=== PATIENT | male | born 1965 | race Caucasian/White ===

== ENCOUNTER 2019-11-08 13:26 | Emergency (ER) | payer MEDICAID ==
[~2019-11-08] VITALS: Ht 185.4 cm; Wt 130.7 kg
[~2019-11-08 13:26] MED LIST: ALBU6.7H9 INH; NO HOME MEDS
[2019-11-08 13:28] VITALS: BP 145/81
[2019-11-08] MEDS ORDERED: LEVO500T2 PO (14:41)
[2019-11-08] MEDS ORDERED: ALBU6.7H9 INH (14:41)
[2019-11-08] MEDS ORDERED: METH4TAB81 PO (14:41)
== END 2019-11-08 15:10 | disposition home or self-care (01) ==
LOC: ER 13:27
DX: J20.9 Acute bronchitis, unspecified (principal); Z88.1 Allergy status to other antibiotic agents; Z79.2 Long term (current) use of antibiotics
CPT/HCPCS: 99283

== ENCOUNTER 2023-08-22 12:41 | Inpatient (IN) | payer MEDICAID ==
[2023-08-22] VITALS (11 sets, daily range): BP systolic 95–168; BP diastolic 56–82; PULSE 64–89; RESP 14–18; TEMP 97.5–98.6; O2SAT 93–98
[~2023-08-22] VITALS: Ht 185.4 cm; Wt 133.8 kg
[~2023-08-22 12:41] MED LIST changes: +ALBU6.7H14 INH; -ALBU6.7H9 INH; +METH4TAB81 PO
[2023-08-22] MEDS ORDERED: insulin Lispro (HumaLOG) vial - multi-dose SQ SCH (12:55)
[2023-08-22] MEDS ORDERED: LORazepam 0.5 MG tablet PO PRN (12:55)
[2023-08-22] MEDS ORDERED: dextrose 50%-water 50ml dispensing syringe IV PRN ×2 (12:55)
[2023-08-22] MEDS ORDERED: nitroGLYCERIN 0.4mg SUBLingual tab SL PRN ×2 (12:55→15:25)
[2023-08-22] MEDS ORDERED: MESSAGE TO PHARMACY PO ONE (12:55)
[2023-08-22] MEDS ORDERED: diphenhydrAMINE 25mg capsule PO PRN (12:55)
[2023-08-22] MEDS ORDERED: DEXTROSE 15 GM of carb/4 tabs (each vial/BOTTLE has 4 tablets) PO PRN ×2 (12:55)
[2023-08-22] MEDS ORDERED: glucagon, human recombinant 1mg kit SUBCUT PRN (12:55)
[2023-08-22] MEDS ORDERED: METO-395 PO (12:57)
[2023-08-22] MEDS ORDERED: PANT40TA54 PO (12:57)
[2023-08-22] MEDS ORDERED: LISI1TAB53 PO (12:57)
[2023-08-22] MEDS ORDERED: NITR1PAT68 TOP (13:03)
[2023-08-22] MEDS: normal saline 1,000 ML IV SCH ×2 (13:29→21:25)
[2023-08-22 13:39] LABS: BASOPHILS # (AUTO) 0.1 X10'3 (0-0.2); BASOPHILS % (AUTO) 0.9 % (0-1); EOSINOPHILS # (AUTO) 0.1 X10'3 (0-0.9); EOSINOPHILS % (AUTO) 1.5 % (0-6); HEMATOCRIT 43.5 % (42.0-52.0); LYMPHOCYTES % (AUTO) 25.1 % (21-51); MEAN CORPUSCULAR HEMOGLOBIN 30.3 PG (27.0-31.0); MEAN CORPUSCULAR HGB CONC 34.6 g/dL (33.0-36.5); MEAN CORPUSCULAR VOLUME 87.5 FL (78-98); MEAN PLATELET VOLUME 7.4 FL (7.4-10.4); MONOCYTES # (AUTO) 0.7 X10'3 (0-0.9); MONOCYTES % (AUTO) 9.2 % (2-12); NEUTROPHILS # (AUTO) 5.1 X10'3 (1.8-7.7); NEUTROPHILS % (AUTO) 63.3 % (42-75); PLATELET COUNT 329 X10'3 (140-440); RED BLOOD COUNT 4.97 X10'6 (4.70-6.10); RED CELL DISTRIBUTION WIDTH 13.3 % (11.5-14.5); WHITE BLOOD COUNT 8.1 X10'3 (4.5-11.0)
[2023-08-22 13:43] LABS: APTT 24 SECONDS (22-32); PROTHROMBIN TIME 10.5 SECONDS (9.0-12.0)
[2023-08-22] MEDS ORDERED: iohexol 350 MG/ML 50ML vial IV ONE ×2 (13:43→14:32)
[2023-08-22] MEDS ORDERED: LIDOcaine 1% (10mg/ml)w/preservative inj. 20ml MDV ONE (13:43)
[2023-08-22] MEDS ORDERED: fentaNYL/PF 50MCG/1 ML 2ML syringe ONE ×2 (13:43→14:25)
[2023-08-22] MEDS ORDERED: iohexol 350MG/ML 100ml bottle IV ONE (13:43)
[2023-08-22] MEDS ORDERED: midazolam 1 mg/ML 2ml injection ONE ×2 (13:43→14:17)
[2023-08-22 13:55] LABS: ALBUMIN 3.9 G/DL (3.4-5.0); ANION GAP 6 (8-16); BLOOD UREA NITROGEN 8 MG/DL (7-18); BUN/CREATININE RATIO 9.2 (10.0-20.0); CALCIUM 9.3 MG/DL (8.5-10.1); CHLORIDE 99 MMOL/L (99-107); CREATININE 0.87 MG/DL (0.60-1.10); GLUCOSE 118 MG/DL (70-104); POTASSIUM 3.6 MMOL/L (3.5-5.1); SODIUM 136 MMOL/L (135-145); TOTAL CARBON DIOXIDE 30.7 MMOL/L (24-32); eCRCL 107 ML/MIN; eGFR > 90 ML/MIN
[2023-08-22] MEDS ORDERED: normal saline 1000ml 1,000 ML IV SCH (15:25)
[2023-08-22] MEDS ORDERED: HYDROcodone/acetaminophen 5mg/325mg tablet PO PRN (15:25)
[2023-08-22] MEDS ORDERED: proCHLORperazine 10 MG/2 ml inj IV PRN (15:25)
[2023-08-22] MEDS ORDERED: HYDROcodone/acetaminophen 10/325mg tab PO PRN (15:25)
[2023-08-22] MEDS ORDERED: ondansetron/PF 4mg/2ml inj IV PRN (15:25)
[2023-08-22] MEDS: insulin glargine (Lantus) pen - multi-dose SQ SCH (21:00)
[2023-08-23 02:00] VITALS: BP 142/54; PULSE 65; RESP 18; TEMP 98; O2SAT 97
[2023-08-23] MEDS ORDERED: Insulin Reg/NS 100units/100mL 100 ML IV SCH (05:30)
[2023-08-23 06:00] VITALS: BP 136/67; PULSE 83; RESP 18; TEMP 98.6; O2SAT 93
[2023-08-23 09:19] LABS: BASOPHILS % (AUTO) 0.4 % (0-1); EOSINOPHILS # (AUTO) 0.1 X10'3 (0-0.9); EOSINOPHILS % (AUTO) 0.8 % (0-6); HEMATOCRIT 43.1 % (42.0-52.0); HEMOGLOBIN 14.5 g/dl (14.0-17.9); LYMPHOCYTES # (AUTO) 1.6 X10'3 (1.1-4.8); LYMPHOCYTES % (AUTO) 17.1 % (21-51); MEAN CORPUSCULAR HEMOGLOBIN 29.5 PG (27.0-31.0); MEAN CORPUSCULAR HGB CONC 33.7 g/dL (33.0-36.5); MEAN CORPUSCULAR VOLUME 87.6 FL (78-98); MEAN PLATELET VOLUME 7.3 FL (7.4-10.4); MONOCYTES # (AUTO) 0.7 X10'3 (0-0.9); MONOCYTES % (AUTO) 7.9 % (2-12); NEUTROPHILS # (AUTO) 6.9 X10'3 (1.8-7.7); NEUTROPHILS % (AUTO) 73.8 % (42-75); PLATELET COUNT 297 X10'3 (140-440); RED BLOOD COUNT 4.92 X10'6 (4.70-6.10); RED CELL DISTRIBUTION WIDTH 13.3 % (11.5-14.5); WHITE BLOOD COUNT 9.4 X10'3 (4.5-11.0)
[2023-08-23 09:32] LABS: PROTHROMBIN TIME 10.8 SECONDS (9.0-12.0)
[2023-08-23 09:38] LABS: ALANINE AMINOTRANSFERASE 46 U/L (12-78); ALBUMIN 3.5 G/DL (3.4-5.0); ALBUMIN/GLOBULIN RATIO 0.8 (1.1-1.5); ALKALINE PHOSPHATASE 61 IU/L (46-116); ANION GAP 7 (8-16); ASPARTATE AMINO TRANSFERASE 28 U/L (10-37); BILIRUBIN,TOTAL 0.8 MG/DL (0.1-1.0); BLOOD UREA NITROGEN 10 MG/DL (7-18); BUN/CREATININE RATIO 12.2 (10.0-20.0); CHLORIDE 100 MMOL/L (99-107); CREATININE 0.82 MG/DL (0.60-1.10); GLUCOSE 136 MG/DL (70-104); POTASSIUM 3.8 MMOL/L (3.5-5.1); SODIUM 135 MMOL/L (135-145); TOTAL CARBON DIOXIDE 28.2 MMOL/L (24-32); TOTAL PROTEIN 7.7 G/DL (6.4-8.2); eCRCL 114 ML/MIN; eGFR > 90 ML/MIN
[2023-08-23 09:44] LABS: HEMOGLOBIN A1C 6.1 % (4.5-6.2)
[2023-08-23 11:00] VITALS: BP 163/77; PULSE 88; RESP 20; TEMP 98.8; O2SAT 94
[2023-08-23] MEDS ORDERED: metoprolol succinate 25mg (24-HOUR) SR. Tablet PO SCH (11:36)
[2023-08-23] MEDS ORDERED: HYDROchlorothiazide 25mg tablet PO SCH (11:38)
[2023-08-23] MEDS ORDERED: lisinopril 20mg tablet PO SCH (11:38)
[2023-08-23 15:00] VITALS: BP 177/79; PULSE 84; RESP 15; TEMP 98; O2SAT 96
[2023-08-23] MEDS: OXAZEpam 15mg capsule PO PRN ×2 (15:49→21:45)
[2023-08-23 17:19] LABS: ABG BASE EXCESS 2.8 mmol/L (-2.0-2.0); ABG HCO3 27.2 mmol/L (22.0-26.0); ABG OXYGEN SATURATION 95.9 % (94-97); ABG PCO2 (T) 41.3 mmHg (35.0-48.0); ABG PH (T) 7.438 (7.340-7.440); ABG PO2 (T) 78.2 mmHg (75.0-100.0); ALLEN'S TEST POSITIVE; FCOHb 0.8 % (0.0-3.9); FHHb 4.1 % (0.0-5.0); FMetHb 0.3 % (0.0-1.5); FO2Hb 94.8 % (94-97); PATIENT TEMPERATURE 37.1; TOTAL HEMOGLOBIN 15.7 G/dl (14.0-17.9)
[2023-08-23 18:00] VITALS: BP 129/60; PULSE 85; RESP 12; TEMP 97.7; O2SAT 97
[2023-08-23] MEDS ORDERED: Melatonin 3mg tablet PO ONE (20:50)
[2023-08-23] MEDS: insulin glargine (Lantus) pen - multi-dose SQ SCH (21:00)
[2023-08-23 22:00] VITALS: BP 120/58; PULSE 73; RESP 14; TEMP 98.2; O2SAT 95
[2023-08-23] MEDS ORDERED: dextrose 50%-water 50ml dispensing syringe IV PRN (23:35)
[2023-08-23] MEDS ORDERED: MESSAGE TO NURSING PO ONE (23:35)
[2023-08-24] VITALS (21 sets, daily range): BP systolic 86–159; BP diastolic 46–79; PULSE 64–88; RESP 12–28; TEMP 97.5–98.4; O2SAT 90–100
[2023-08-24] MEDS ORDERED: mupirocin 2% nasal ointment 1gm UD NS SCH (05:30)
[2023-08-24] MEDS ORDERED: insulin glargine (Lantus) pen - multi-dose SQ PRN ×2 (05:30→15:20)
[2023-08-24] MEDS ORDERED: cefazolin 2gm/D5W 100mL 100 ML IV ONE (05:30)
[2023-08-24] MEDS ORDERED: LORazepam 2 mg/ml vial IV ONE (06:30)
[2023-08-24] MEDS ORDERED: famotidine 20mg tablet PO ONE (06:30)
[2023-08-24] MEDS ORDERED: ceFAZolin 1000mg inj ONE (06:52)
[2023-08-24] MEDS ORDERED: epiNEPHrine 1 mg/ml inj ONE (06:52)
[2023-08-24] MEDS ORDERED: BUPIVAcaine 0.5% inj/PF 30 ML ONE (06:53)
[2023-08-24] MEDS ORDERED: BUPIVACAINE liposomal/PF 13.3 MG/ML vial IM ONE ×2 (06:53→09:00)
[2023-08-24] MEDS ORDERED: epiNEPHrine 1 mg/ml 30ml MDV ONE (07:53)
[2023-08-24] MEDS ORDERED: pantoprazole 40mg Tablet.DR PO SCH (08:00)
[2023-08-24] MEDS ORDERED: MIDAZolam 1mg/ml 10ml vial ONE (08:04)
[2023-08-24] MEDS ORDERED: fentaNYL /PF 50mcg/ml 5ml ampule ONE ×3 (08:04)
[2023-08-24] MEDS ORDERED: propofol inj 20 ML IV ONE ×2 (08:07→08:08)
[2023-08-24] MEDS ORDERED: LIDOcaine 2% (20mg/ml) 5ml vial ONE (08:07)
[2023-08-24] MEDS ORDERED: NORepinephrine 8 MG in NS 250 ML BAG (32 mcg/ml) IV ONE (08:20)
[2023-08-24] MEDS ORDERED: ondansetron/PF 4mg/2ml inj ONE (08:20)
[2023-08-24] MEDS ORDERED: nitroGLYCERIN in D5W 50mg/250ml (Tridil) infusion IV ONE (08:20)
[2023-08-24] MEDS ORDERED: aminocaproic acid 250 MG/1 ML inj. ONE (08:20)
[2023-08-24] MEDS ORDERED: sevoflurane 250ml liquid IH ONE (08:20)
[2023-08-24] MEDS ORDERED: ceFAZolin 1000mg inj IR ONE (09:00)
[2023-08-24] MEDS ORDERED: papaverine 30 mg/ml 2ml inj. IM ONE (09:00)
[2023-08-24] MEDS ORDERED: heparin 10,000 units/1 ML INJ IR ONE (09:00)
[2023-08-24] MEDS ORDERED: epiNEPHrine 1 mg/ml inj SQ ONE (09:00)
[2023-08-24] MEDS ORDERED: BUPIVAcaine 0.5% inj/PF 30 ml vial IJ ONE (09:00)
[2023-08-24 09:06] LABS: ABG BASE EXCESS 1.6 mmol/L (-2.0-2.0); ABG HCO3 26.1 mmol/L (22.0-26.0); ABG OXYGEN SATURATION 97.5 % (94-97); ABG PCO2 40.6 mmHg (35.0-48.0); ABG PH 7.426 (7.340-7.440); ABG PO2 106.1 mmHg (75.0-100.0); CL (ABG) 98 mmol/L (99-107); FCOHb 0.3 % (0.0-3.9); FHHb 2.5 % (0.0-5.0); FMetHb 0.3 % (0.0-1.5); FO2Hb 96.9 % (94-97); GLUCOSE (ABG) 144 mg/dl (70-104); IONIZED CA (ABG) 1.14 mmol/L (1.10-1.30); TOTAL HEMOGLOBIN 15.1 G/dl (14.0-17.9)
[2023-08-24] MEDS ORDERED: dexamethasone sod phosphate 4mg/ml inj. ONE (09:08)
[2023-08-24] MEDS ORDERED: rocuronium 10mg/ml inj IV ONE ×5 (09:46→14:58)
[2023-08-24] MEDS ORDERED: ROPIVAcaine 0.2%/PF PUMP/bolus 545 ML ERECSPINPL SCH (10:25)
[2023-08-24] MEDS ORDERED: ROPIVAcaine 0.2% (10 MG/5 ML) BOLUS INJECTION ERECSPINPL PRN (10:25)
[2023-08-24] MEDS ORDERED: ipratropium/albuterol 3ml nebule IH SCH (11:00)
[2023-08-24] MEDS ORDERED: albumin (Human) 5% 250ml 250 ML IV ONE (11:12)
[2023-08-24] MEDS ORDERED: methylPREDNISolone sod. succ. 500mg inj ONE (12:00)
[2023-08-24] MEDS ORDERED: heparin 10,000 units/1 ML INJ ONE (12:00)
[2023-08-24] MEDS ORDERED: ROPIVAcaine 0.5% (5mg/ml) 30ml vial ONE (13:35)
[2023-08-24] MEDS ORDERED: ondansetron/PF 4mg/2ml inj IV PRN (15:20)
[2023-08-24] MEDS ORDERED: metoclopramide 5 mg/ml inj IV PRN (15:20)
[2023-08-24] MEDS: Insulin Reg/NS 100units/100mL 100 ML IV SCH (15:20)
[2023-08-24] MEDS ORDERED: dextrose 50%-water 50ml dispensing syringe IV PRN (15:20)
[2023-08-24] MEDS ORDERED: potassium Cl 40MEQ/1/2NS 520ml 520 ML IV PRN (15:20)
[2023-08-24] MEDS ORDERED: potassium Cl 40MEQ/270ML bag 250 ML IV PRN (15:20)
[2023-08-24] MEDS ORDERED: magnesium 4gm in 100ml NS 100 ML IV PRN (15:20)
[2023-08-24] MEDS ORDERED: niCARDipine-NS 40mg/200ml IVPB 200 ML IV PRN (15:20)
[2023-08-24] MEDS ORDERED: potassium CL 10mEq/100ml bag 100 ML IV PRN (15:20)
[2023-08-24] MEDS ORDERED: sodium phosphate inj. 15 MMOL in dextrose 5%-water 250 ML IV PRN (15:20)
[2023-08-24] MEDS ORDERED: Neutra Phos packet PO PRN (15:20)
[2023-08-24] MEDS ORDERED: sodium phosphate inj. 30 MMOL in dextrose 5%-water 250 ML IV PRN (15:20)
[2023-08-24] MEDS ORDERED: potassium Cl 20 mEq SR tablet PO PRN (15:20)
[2023-08-24] MEDS ORDERED: mineral oil 133ml enema RC PRN (15:20)
[2023-08-24] MEDS ORDERED: nitroGLYCERIN-Tridil 50MG/D5W 250 ML IV PRN (15:20)
[2023-08-24] MEDS ORDERED: bisacodyl 10mg suppository rectal RC PRN (15:20)
[2023-08-24] MEDS ORDERED: magnesium hydroxide 30ml (MOM) UD suspension PO PRN (15:20)
[2023-08-24] MEDS ORDERED: normal saline 250ml IV soln 250 ML IV PRN (15:20)
[2023-08-24] MEDS ORDERED: DOPamine 400mg/D5W 250ml 250 ML IV PRN (15:20)
[2023-08-24] MEDS ORDERED: acetaminophen 325mg tablet PO PRN ×2 (15:20)
[2023-08-24 15:44] LABS: ABG BASE EXCESS -4.1 mmol/L (-2.0-2.0); ABG HCO3 20.7 mmol/L (22.0-26.0); ABG PCO2 (T) 37.8 mmHg (35.0-48.0); ABG PH (T) 7.358 (7.340-7.440); ABG PO2 (T) 79.9 mmHg (75.0-100.0); FCOHb 0.4 % (0.0-3.9); FMetHb 0.3 % (0.0-1.5); FO2Hb 94.3 % (94-97); PATIENT TEMPERATURE 37.5; PEEP 10 cm H2O; RESPIRATORY RATE 12 b/min; TIDAL VOLUME 700 mL; TOTAL HEMOGLOBIN 13.1 G/dl (14.0-17.9)
[2023-08-24] MEDS ORDERED: cefazolin/dext.iso 2gm/50ml 50 ML IV SCH (16:00)
[2023-08-24] MEDS: sodium chloride 0.45% 1,000 ML IV SCH (16:05)
[2023-08-24 16:08] LABS: BASOPHILS % (AUTO) 0.3 % (0-1); EOSINOPHILS % (AUTO) 0 % (0-6); HEMATOCRIT 37.7 % (42.0-52.0); HEMOGLOBIN 12.6 g/dl (14.0-17.9); LYMPHOCYTES % (AUTO) 5.7 % (21-51); MEAN CORPUSCULAR HEMOGLOBIN 29.5 PG (27.0-31.0); MEAN CORPUSCULAR HGB CONC 33.5 g/dL (33.0-36.5); MEAN CORPUSCULAR VOLUME 88.1 FL (78-98); MEAN PLATELET VOLUME 7.3 FL (7.4-10.4); MONOCYTES # (AUTO) 0.8 X10'3 (0-0.9); MONOCYTES % (AUTO) 4.4 % (2-12); NEUTROPHILS # (AUTO) 15.6 X10'3 (1.8-7.7); NEUTROPHILS % (AUTO) 89.6 % (42-75); PLATELET COUNT 291 X10'3 (140-440); RED BLOOD COUNT 4.28 X10'6 (4.70-6.10); RED CELL DISTRIBUTION WIDTH 13.3 % (11.5-14.5); WHITE BLOOD COUNT 17.5 X10'3 (4.5-11.0)
[2023-08-24] MEDS: ceFAZolin inj. 2,000 MG in dextrose 5%-water 100 ML IV SCH (16:15)
[2023-08-24] MEDS: morphine 4 MG/ML inj SYRINge IV PRN (16:17)
[2023-08-24 16:24] LABS: ALANINE AMINOTRANSFERASE 40 U/L (12-78); ALBUMIN 2.8 G/DL (3.4-5.0); ALBUMIN/GLOBULIN RATIO 0.9 (1.1-1.5); ALKALINE PHOSPHATASE 47 IU/L (46-116); ANION GAP 11 (8-16); ASPARTATE AMINO TRANSFERASE 65 U/L (10-37); BILIRUBIN,TOTAL 1.3 MG/DL (0.1-1.0); BLOOD UREA NITROGEN 9 MG/DL (7-18); BUN/CREATININE RATIO 12.2 (10.0-20.0); CALCIUM 7.6 MG/DL (8.5-10.1); CHLORIDE 103 MMOL/L (99-107); CREATININE 0.74 MG/DL (0.60-1.10); GLUCOSE 174 MG/DL (70-104); MAGNESIUM 1.6 MG/DL (1.5-2.4); PHOSPHORUS 3.6 MG/DL (2.3-4.5); POTASSIUM 3.7 MMOL/L (3.5-5.1); SODIUM 136 MMOL/L (135-145); TOTAL CARBON DIOXIDE 22.2 MMOL/L (24-32); TOTAL PROTEIN 5.9 G/DL (6.4-8.2); eCRCL 126 ML/MIN; eGFR > 90 ML/MIN
[2023-08-24] MEDS ORDERED: sodium bicarbonate (8.4%) 1 mEq/ml syringe IV ONE (16:30)
[2023-08-24] MEDS ORDERED: niCARDipine-NS 40mg/200ml IVPB 200 ML IV SCH (16:30)
[2023-08-24] MEDS ORDERED: propofol 1000mg/100ml bottle 100 ML IV PRN (16:30)
[2023-08-24 16:32] LABS: FIBRINOGEN 282 MG/DL (177-424); INR 1.1 INR; PROTHROMBIN TIME 11.4 SECONDS (9.0-12.0)
[2023-08-24] MEDS ORDERED: sodium bicarbonate (8.4%) 1 mEq/ml syringe ONE (16:33)
[2023-08-24] MEDS ORDERED: furosemide 40mg/4ml inj IV ONE (16:35)
[2023-08-24 16:45] LABS: APTT 85 SECONDS (22-32)
[2023-08-24] MEDS ORDERED: acetaminophen 1,000mg/100ml IV 100 ML IV ONE (18:00)
[2023-08-24] MEDS: dexmedetomidin/NS 400mcg/100ml 100 ML IV SCH (18:02)
[2023-08-24] MEDS: morphine 2 MG/ML inj. syringe IV PRN ×2 (18:05→20:18)
[2023-08-24] MEDS: potassium Cl 20mEq/100mL bag 100 ML IV PRN ×3 (18:20→20:18)
[2023-08-24] MEDS: albumin (Human) 5% 250ml 250 ML IV PRN ×3 (18:32→20:34)
[2023-08-24] MEDS: magnesium 2GM in 50ml NS 50 ML IV PRN ×2 (18:40→22:20)
[2023-08-24 19:23] LABS: ABG HCO3 24.3 mmol/L (22.0-26.0); ABG OXYGEN SATURATION 95.8 % (94-97); ABG PCO2 (T) 39.5 mmHg (35.0-48.0); ABG PO2 (T) 82.6 mmHg (75.0-100.0); FCOHb 0.3 % (0.0-3.9); FHHb 4.2 % (0.0-5.0); FMetHb 0.3 % (0.0-1.5); FO2Hb 95.2 % (94-97); MODE simv 10/10; PATIENT TEMPERATURE 37.7; PEEP 10 cm H2O; RESPIRATORY RATE 16 b/min; TIDAL VOLUME 500 mL; TOTAL HEMOGLOBIN 12.4 G/dl (14.0-17.9)
[2023-08-24] MEDS: sennosides/docusate sodium tablet PO SCH (20:00)
[2023-08-24] MEDS: gabapentin 300mg capsule PO SCH (20:18)
[2023-08-24] MEDS: mupirocin 2% nasal ointment 1gm UD NS SCH (20:18)
[2023-08-24] MEDS ORDERED: atorvastatin 10mg tablet PO SCH (21:00)
[2023-08-24] MEDS: HYDROcodone/acetaminophen 10/325mg tab PO PRN (22:20)
[2023-08-24 23:12] LABS: BASOPHILS % (AUTO) 0.1 % (0-1); EOSINOPHILS % (AUTO) 0 % (0-6); HEMATOCRIT 34.5 % (42.0-52.0); HEMOGLOBIN 11.6 g/dl (14.0-17.9); LYMPHOCYTES # (AUTO) 1.2 X10'3 (1.1-4.8); LYMPHOCYTES % (AUTO) 7.2 % (21-51); MEAN CORPUSCULAR HEMOGLOBIN 29.9 PG (27.0-31.0); MEAN CORPUSCULAR HGB CONC 33.7 g/dL (33.0-36.5); MEAN CORPUSCULAR VOLUME 88.5 FL (78-98); MEAN PLATELET VOLUME 7.6 FL (7.4-10.4); MONOCYTES # (AUTO) 1.9 X10'3 (0-0.9); NEUTROPHILS # (AUTO) 13.9 X10'3 (1.8-7.7); NEUTROPHILS % (AUTO) 81.7 % (42-75); PLATELET COUNT 286 X10'3 (140-440); RED CELL DISTRIBUTION WIDTH 13.2 % (11.5-14.5)
[2023-08-24 23:17] LABS: ALBUMIN 3.4 G/DL (3.4-5.0); ANION GAP 10 (8-16); BLOOD UREA NITROGEN 12 MG/DL (7-18); BUN/CREATININE RATIO 13.3 (10.0-20.0); CALCIUM 7.6 MG/DL (8.5-10.1); CHLORIDE 102 MMOL/L (99-107); GLUCOSE 167 MG/DL (70-104); MAGNESIUM 2.5 MG/DL (1.5-2.4); PHOSPHORUS 3.4 MG/DL (2.3-4.5); POTASSIUM 4.4 MMOL/L (3.5-5.1); SODIUM 136 MMOL/L (135-145); TOTAL CARBON DIOXIDE 24.2 MMOL/L (24-32); eCRCL 104 ML/MIN; eGFR 87 ML/MIN
[2023-08-25] VITALS (44 sets, daily range): BP systolic 95–132; BP diastolic 47–66; PULSE 77–114; RESP 16–33; O2SAT 85–98
[2023-08-25] MEDS: ceFAZolin inj. 2,000 MG in dextrose 5%-water 100 ML IV SCH ×3 (00:14→16:17)
[2023-08-25] MEDS: potassium Cl 20mEq/100mL bag 100 ML IV PRN ×4 (00:14→06:02)
[2023-08-25] MEDS: morphine 4 MG/ML inj SYRINge IV PRN ×6 (00:43→22:35)
[2023-08-25] MEDS: dexmedetomidin/NS 400mcg/100ml 100 ML IV SCH ×5 (02:01→20:15)
[2023-08-25] MEDS: ipratropium/albuterol 3ml nebule NEB SCH ×2 (03:29→09:40)
[2023-08-25] MEDS: HYDROcodone/acetaminophen 10/325mg tab PO PRN ×4 (03:32→17:25)
[2023-08-25 04:34] LABS: BASOPHILS % (AUTO) 0.1 % (0-1); EOSINOPHILS % (AUTO) 0 % (0-6); HEMATOCRIT 34.5 % (42.0-52.0); HEMOGLOBIN 11.7 g/dl (14.0-17.9); LYMPHOCYTES # (AUTO) 1.9 X10'3 (1.1-4.8); LYMPHOCYTES % (AUTO) 10.5 % (21-51); MEAN CORPUSCULAR HEMOGLOBIN 29.9 PG (27.0-31.0); MEAN CORPUSCULAR HGB CONC 33.9 g/dL (33.0-36.5); MEAN CORPUSCULAR VOLUME 88.3 FL (78-98); MEAN PLATELET VOLUME 7.3 FL (7.4-10.4); MONOCYTES # (AUTO) 1.5 X10'3 (0-0.9); MONOCYTES % (AUTO) 8.3 % (2-12); NEUTROPHILS # (AUTO) 14.9 X10'3 (1.8-7.7); NEUTROPHILS % (AUTO) 81.1 % (42-75); PLATELET COUNT 287 X10'3 (140-440); RED CELL DISTRIBUTION WIDTH 13.4 % (11.5-14.5); WHITE BLOOD COUNT 18.4 X10'3 (4.5-11.0)
[2023-08-25 04:43] LABS: APTT 25 SECONDS (22-32); INR 1.1 INR; PROTHROMBIN TIME 11.3 SECONDS (9.0-12.0)
[2023-08-25 04:44] LABS: ALANINE AMINOTRANSFERASE 41 U/L (12-78); ALBUMIN 3.2 G/DL (3.4-5.0); ALBUMIN/GLOBULIN RATIO 1.1 (1.1-1.5); ALKALINE PHOSPHATASE 37 IU/L (46-116); ANION GAP 7 (8-16); ASPARTATE AMINO TRANSFERASE 82 U/L (10-37); BILIRUBIN,TOTAL 1.1 MG/DL (0.1-1.0); BLOOD UREA NITROGEN 12 MG/DL (7-18); BUN/CREATININE RATIO 12.9 (10.0-20.0); CALCIUM 7.7 MG/DL (8.5-10.1); CHLORIDE 104 MMOL/L (99-107); CREATININE 0.93 MG/DL (0.60-1.10); GLUCOSE 158 MG/DL (70-104); MAGNESIUM 2.8 MG/DL (1.5-2.4); PHOSPHORUS 2.3 MG/DL (2.3-4.5); POTASSIUM 4.1 MMOL/L (3.5-5.1); SODIUM 136 MMOL/L (135-145); TOTAL CARBON DIOXIDE 25.3 MMOL/L (24-32); TOTAL PROTEIN 6.2 G/DL (6.4-8.2); TRIGLYCERIDES 69 MG/DL (20-135); eCRCL 100 ML/MIN; eGFR 84 ML/MIN
[2023-08-25 05:16] LABS: ABG BASE EXCESS 0.9 mmol/L (-2.0-2.0); ABG HCO3 24.6 mmol/L (22.0-26.0); ABG OXYGEN SATURATION 95.5 % (94-97); ABG PCO2 (T) 37.6 mmHg (35.0-48.0); ABG PH (T) 7.437 (7.340-7.440); ABG PO2 (T) 79.4 mmHg (75.0-100.0); FCOHb 0.4 % (0.0-3.9); FHHb 4.5 % (0.0-5.0); FMetHb 0.3 % (0.0-1.5); FO2Hb 94.8 % (94-97); PEEP 6 cm H2O; RESPIRATORY RATE 12 b/min; TIDAL VOLUME 500 mL; TOTAL HEMOGLOBIN 12.5 G/dl (14.0-17.9)
[2023-08-25] MEDS: morphine 2 MG/ML inj. syringe IV PRN (05:44)
[2023-08-25] MEDS: gabapentin 300mg capsule PO SCH ×2 (07:26→13:36)
[2023-08-25] MEDS: sennosides/docusate sodium tablet PO SCH (07:26)
[2023-08-25] MEDS: mupirocin 2% nasal ointment 1gm UD NS SCH ×2 (07:26→20:13)
[2023-08-25] MEDS ORDERED: aspirin 81mg tab.chew PO SCH (08:30)
[2023-08-25] MEDS: Insulin Reg/NS 100units/100mL 100 ML IV SCH (08:32)
[2023-08-25] MEDS ORDERED: albumin (human) 25% 100 ML IV solution IV ONE (08:45)
[2023-08-25] MEDS: NORepinephrine 8mg/ 250ml NS 250 ML IV SCH ×2 (09:14→11:17)
[2023-08-25] MEDS: piperacillin/tazo 4.5gm/100ml 100 ML IV SCH ×2 (10:05→16:17)
[2023-08-25] MEDS ORDERED: albumin (Human) 5% 250ml 250 ML IV ONE ×2 (11:25→13:45)
[2023-08-25] MEDS ORDERED: metoclopramide 5 mg/ml inj IV PRN (13:40)
[2023-08-25] MEDS: metoclopramide 5 mg/ml inj IV SCH ×2 (13:54→20:13)
[2023-08-25] MEDS ORDERED: aspirin 81mg tab.chew NG SCH (14:14)
[2023-08-25] MEDS ORDERED: acetaminophen 325mg/10.15ml oral unit dose solution NG PRN ×2 (14:14)
[2023-08-25] MEDS ORDERED: magnesium hydroxide 30ml (MOM) UD suspension NG PRN (14:15)
[2023-08-25] MEDS ORDERED: atorvastatin 10mg tablet NG SCH (14:15)
[2023-08-25] MEDS ORDERED: Neutra Phos packet NG PRN (14:16)
[2023-08-25] MEDS ORDERED: POTASSIUM BICARB 20meq eff tab 20 MEQ TABLET.EFF NG PRN (14:18)
[2023-08-25 14:48] LABS: BILIRUBIN,URINE SMALL (Neg); CLARITY,URINE TURBID (Clear); COLOR,URINE YELLOW (Yellow); LEUKOCYTE ESTERASE ,URINE NEGATIVE (Neg); OCCULT BLOOD,URINE SMALL (Neg)
[2023-08-25 14:56] LABS: GLUCOSE, URINE 100 mg/dl (Neg); KETONES,URINE TRACE mg/dl (Neg); PROTEIN,URINE 100 mg/dl (Neg)
[2023-08-25 15:03] LABS: NITRITES, URINE NEGATIVE (Neg); UA COLLECTION TYPE NON-SPECIFIED
[2023-08-25 15:06] LABS: BACTERIA,URINE NONE SEEN /HPF (Neg); MUCUS STRANDS NONE SEEN /LPF (Neg); SQUAMOUS EPITHELIAL CELL,UR NONE SEEN /LPF (FEW); WBC,URINE 0-4 /HPF (0-4)
[2023-08-25 15:09] LABS: AMORPHOUS URATES 3+; SPERM FEW /HPF (NEGATIVE)
[2023-08-25] MEDS: albuterol 2.5 MG/3 ML nebule NEB SCH ×2 (15:46→23:07)
[2023-08-25] MEDS: acetylcysteine 200 MG/ml 4ml vial INH SCH ×2 (15:48→23:07)
[2023-08-25] MEDS ORDERED: ipratropium/albuterol 3ml nebule NEB SCH (17:00)
[2023-08-25 17:29] LABS: ABG BASE EXCESS -2.5 mmol/L (-2.0-2.0); ABG HCO3 22.2 mmol/L (22.0-26.0); ABG OXYGEN SATURATION 95.4 % (94-97); ABG PCO2 (T) 37.9 mmHg (35.0-48.0); ABG PH (T) 7.385 (7.340-7.440); ABG PO2 (T) 78.9 mmHg (75.0-100.0); FCOHb 0.1 % (0.0-3.9); FHHb 4.6 % (0.0-5.0); FMetHb 0.3 % (0.0-1.5); MODE VENT - SIMV; PEEP 10 cm H2O; RESPIRATORY RATE 16 b/min; TIDAL VOLUME 600 mL; TOTAL HEMOGLOBIN 11.3 G/dl (14.0-17.9)
[2023-08-25] MEDS ORDERED: CALCIUM GLUC 1gm/50ml NACL,iso 100 ML IV ONE (17:30)
[2023-08-25] MEDS ORDERED: CALCIUM GLUC 1gm/50ml NACL,iso 50 ML IV ONE ×2 (17:40→18:05)
[2023-08-25] MEDS ORDERED: sodium bicarbonate (8.4%) 1 mEq/ml syringe IV ONE (17:55)
[2023-08-25 18:54] LABS: ALBUMIN 3.2 G/DL (3.4-5.0); ANION GAP 9 (8-16); BLOOD UREA NITROGEN 12 MG/DL (7-18); BUN/CREATININE RATIO 12.9 (10.0-20.0); CHLORIDE 103 MMOL/L (99-107); CREATININE 0.93 MG/DL (0.60-1.10); GLUCOSE 154 MG/DL (70-104); MAGNESIUM 2.5 MG/DL (1.5-2.4); PHOSPHORUS 2.7 MG/DL (2.3-4.5); POTASSIUM 4.4 MMOL/L (3.5-5.1); SODIUM 137 MMOL/L (135-145); TOTAL CARBON DIOXIDE 24.8 MMOL/L (24-32); eCRCL 100 ML/MIN; eGFR 84 ML/MIN
[2023-08-25 18:56] LABS: MEAN PLATELET VOLUME 7.4 FL (7.4-10.4); PLATELET COUNT 217 X10'3 (140-440)
[2023-08-25 18:58] LABS: BASOPHILS % (AUTO) 0.1 % (0-1); EOSINOPHILS % (AUTO) 0 % (0-6); HEMOGLOBIN 10.1 g/dl (14.0-17.9); LYMPHOCYTES # (AUTO) 1.4 X10'3 (1.1-4.8); LYMPHOCYTES % (AUTO) 7.7 % (21-51); MEAN CORPUSCULAR HEMOGLOBIN 29.7 PG (27.0-31.0); MEAN CORPUSCULAR HGB CONC 33.6 g/dL (33.0-36.5); MEAN CORPUSCULAR VOLUME 88.5 FL (78-98); MONOCYTES # (AUTO) 1.9 X10'3 (0-0.9); MONOCYTES % (AUTO) 10.4 % (2-12); NEUTROPHILS % (AUTO) 81.8 % (42-75); RED BLOOD COUNT 3.39 X10'6 (4.70-6.10); RED CELL DISTRIBUTION WIDTH 13.6 % (11.5-14.5); WHITE BLOOD COUNT 18.3 X10'3 (4.5-11.0)
[2023-08-25] MEDS: enoxaparin 40mg/0.4ml syringe SUBCUT SCH (20:13)
[2023-08-25] MEDS: gabapentin 300mg capsule NG SCH (20:14)
[2023-08-25] MEDS: sennosides/docusate sodium tablet NG SCH (20:14)
[2023-08-25] MEDS: acetaminophen 1,000mg/100ml IV 100 ML IV PRN (20:28)
[2023-08-25] MEDS: sodium chloride 0.45% 1,000 ML IV SCH (20:29)
[2023-08-26] VITALS (42 sets, daily range): BP systolic 90–156; BP diastolic 45–95; PULSE 82–171; RESP 18–46; O2SAT 32–96
[2023-08-26] MEDS: piperacillin/tazo 4.5gm/100ml 100 ML IV SCH ×3 (00:41→15:43)
[2023-08-26] MEDS: ceFAZolin inj. 2,000 MG in dextrose 5%-water 100 ML IV SCH (00:42)
[2023-08-26] MEDS: dexmedetomidin/NS 400mcg/100ml 100 ML IV SCH ×2 (01:14→05:41)
[2023-08-26] MEDS: morphine 4 MG/ML inj SYRINge IV PRN (01:39)
[2023-08-26] MEDS: metoclopramide 5 mg/ml inj IV SCH ×4 (02:33→20:34)
[2023-08-26 03:15] LABS: ALBUMIN 2.9 G/DL (3.4-5.0); ANION GAP 9 (8-16); BLOOD UREA NITROGEN 11 MG/DL (7-18); BUN/CREATININE RATIO 12.6 (10.0-20.0); CALCIUM 7.7 MG/DL (8.5-10.1); CHLORIDE 102 MMOL/L (99-107); CREATININE 0.87 MG/DL (0.60-1.10); GLUCOSE 139 MG/DL (70-104); MAGNESIUM 2.3 MG/DL (1.5-2.4); PHOSPHORUS 2.4 MG/DL (2.3-4.5); POTASSIUM 4.2 MMOL/L (3.5-5.1); SODIUM 134 MMOL/L (135-145); TOTAL CARBON DIOXIDE 22.9 MMOL/L (24-32); eCRCL 107 ML/MIN; eGFR > 90 ML/MIN
[2023-08-26 03:16] LABS: BASOPHILS % (AUTO) 0.2 % (0-1); EOSINOPHILS % (AUTO) 0.1 % (0-6); HEMATOCRIT 29.4 % (42.0-52.0); HEMOGLOBIN 9.8 g/dl (14.0-17.9); LYMPHOCYTES # (AUTO) 1.7 X10'3 (1.1-4.8); LYMPHOCYTES % (AUTO) 8.9 % (21-51); MEAN CORPUSCULAR HEMOGLOBIN 29.8 PG (27.0-31.0); MEAN CORPUSCULAR HGB CONC 33.3 g/dL (33.0-36.5); MEAN CORPUSCULAR VOLUME 89.5 FL (78-98); MEAN PLATELET VOLUME 8.1 FL (7.4-10.4); MONOCYTES # (AUTO) 1.7 X10'3 (0-0.9); MONOCYTES % (AUTO) 8.9 % (2-12); NEUTROPHILS % (AUTO) 81.9 % (42-75); PLATELET COUNT 208 X10'3 (140-440); RED BLOOD COUNT 3.29 X10'6 (4.70-6.10); RED CELL DISTRIBUTION WIDTH 13.3 % (11.5-14.5); WHITE BLOOD COUNT 19.6 X10'3 (4.5-11.0)
[2023-08-26 03:25] LABS: ABG BASE EXCESS 0.6 mmol/L (-2.0-2.0); ABG HCO3 24.6 mmol/L (22.0-26.0); ABG PCO2 (T) 40.2 mmHg (35.0-48.0); ABG PH (T) 7.411 (7.340-7.440); ABG PO2 (T) 82.1 mmHg (75.0-100.0); FCOHb 0.1 % (0.0-3.9); FMetHb 0.3 % (0.0-1.5); FO2Hb 94.6 % (94-97); PATIENT TEMPERATURE 38.8; PEEP 5 cm H2O; RESPIRATORY RATE 16 b/min; TIDAL VOLUME 600 mL; TOTAL HEMOGLOBIN 10.6 G/dl (14.0-17.9)
[2023-08-26] MEDS: HYDROcodone/acetaminophen 10/325mg tab PO PRN ×3 (04:14→20:28)
[2023-08-26] MEDS: potassium Cl 40MEQ/270ML bag 270 ML IV PRN (04:20)
[2023-08-26] MEDS: NORepinephrine 8mg/ 250ml NS 250 ML IV SCH ×2 (05:41→15:37)
[2023-08-26] MEDS: magnesium 2GM in 50ml NS 50 ML IV PRN ×2 (06:55→21:03)
[2023-08-26] MEDS ORDERED: insulin regular, human U-100 3ml vial - multi-dose SQ SCH (07:00)
[2023-08-26] MEDS: acetylcysteine 200 MG/ml 4ml vial INH SCH ×3 (07:27→21:06)
[2023-08-26] MEDS: albuterol 2.5 MG/3 ML nebule NEB SCH ×2 (07:27→15:00)
[2023-08-26] MEDS ORDERED: pantoprazole 40mg Tablet.DR PO SCH (07:30)
[2023-08-26] MEDS ORDERED: lansoprazole 15mg solutab NG SCH (07:30)
[2023-08-26] MEDS: mupirocin 2% nasal ointment 1gm UD NS SCH (07:40)
[2023-08-26] MEDS: sennosides/docusate sodium tablet NG SCH (07:41)
[2023-08-26] MEDS: gabapentin 300mg capsule NG SCH ×2 (07:41→12:31)
[2023-08-26] MEDS ORDERED: insulin regular, human U-100 3ml vial - multi-dose SQ PRN (08:00)
[2023-08-26] MEDS ORDERED: insulin glargine (Lantus) pen - multi-dose SQ SCH (08:00)
[2023-08-26] MEDS ORDERED: mineral oil/petrolatum ophthal oint EACHEYE PRN (09:30)
[2023-08-26] MEDS: sodium chloride 0.45% 1,000 ML IV SCH ×2 (09:53→17:06)
[2023-08-26] MEDS: furosemide 20 MG/2 ML vial IV SCH ×2 (11:53→20:34)
[2023-08-26] MEDS ORDERED: CALCIUM GLUC 1gm/50ml NACL,iso 50 ML IV ONE ×2 (12:00→12:35)
[2023-08-26] MEDS ORDERED: potassium Cl 20 mEq SR tablet PO STA (14:26)
[2023-08-26] MEDS ORDERED: amiodarone 150mg/dext, iso-os 100 ML IV ONE ×2 (14:27→14:30)
[2023-08-26] MEDS: amiodarone/D5 360MG/200ML BAG 200 ML IV SCH ×2 (14:40→20:33)
[2023-08-26] MEDS ORDERED: magnesium hydroxide 30ml (MOM) UD suspension PO PRN (15:32)
[2023-08-26] MEDS ORDERED: POTASSIUM BICARB 20meq eff tab 20 MEQ TABLET.EFF PO PRN (15:33)
[2023-08-26] MEDS ORDERED: acetaminophen 325mg tablet PO PRN ×2 (15:35)
[2023-08-26] MEDS ORDERED: acetaminophen 325mg tablet NG PRN ×2 (15:35)
[2023-08-26] MEDS ORDERED: digoxin 250mcg/ml 2ml ampule IV ONE ×4 (17:00→19:40)
[2023-08-26] MEDS ORDERED: digoxin 250mcg/ml 2ml ampule ONE (17:08)
[2023-08-26] MEDS: acetaminophen 1,000mg/100ml IV 100 ML IV PRN (18:56)
[2023-08-26] MEDS ORDERED: furosemide 20 MG/2 ML vial IV SCH (20:00)
[2023-08-26] MEDS: atorvastatin 10mg tablet PO SCH (20:33)
[2023-08-26] MEDS: enoxaparin 40mg/0.4ml syringe SUBCUT SCH (20:33)
[2023-08-26] MEDS: sennosides/docusate sodium tablet PO SCH (20:34)
[2023-08-26 20:37] LABS: ALANINE AMINOTRANSFERASE 60 U/L (12-78); ALBUMIN 2.8 G/DL (3.4-5.0); ALBUMIN/GLOBULIN RATIO 0.8 (1.1-1.5); ALKALINE PHOSPHATASE 51 IU/L (46-116); ANION GAP 9 (8-16); ASPARTATE AMINO TRANSFERASE 94 U/L (10-37); BILIRUBIN,TOTAL 1.2 MG/DL (0.1-1.0); BLOOD UREA NITROGEN 14 MG/DL (7-18); BUN/CREATININE RATIO 12.7 (10.0-20.0); CALCIUM 8.3 MG/DL (8.5-10.1); CHLORIDE 101 MMOL/L (99-107); GLUCOSE 163 MG/DL (70-104); MAGNESIUM 2.4 MG/DL (1.5-2.4); POTASSIUM 4.6 MMOL/L (3.5-5.1); SODIUM 135 MMOL/L (135-145); TOTAL CARBON DIOXIDE 25.5 MMOL/L (24-32); TOTAL PROTEIN 6.5 G/DL (6.4-8.2); eCRCL 85 ML/MIN; eGFR 69 ML/MIN
[2023-08-26] MEDS ORDERED: insulin glargine (Lantus) pen - multi-dose SQ PRN (21:00)
[2023-08-26] MEDS: levalbuterol 0.63mg/3ml nebule IH SCH (21:06)
[2023-08-26] MEDS ORDERED: metoprolol tartrate 1mg/ml inj IV ONE (21:25)
[2023-08-27] VITALS (38 sets, daily range): BP systolic 126–177; BP diastolic 63–103; PULSE 79–116; RESP 18–50; O2SAT 84–97
[2023-08-27 01:16] LABS: ABG BASE EXCESS -2.4 mmol/L (-2.0-2.0); ABG HCO3 23.9 mmol/L (22.0-26.0); ABG OXYGEN SATURATION 84.4 % (94-97); ABG PCO2 (T) 48.4 mmHg (35.0-48.0); ABG PH (T) 7.313 (7.340-7.440); ABG PO2 (T) 54.2 mmHg (75.0-100.0); ALLEN'S TEST Modified; FCOHb 0.3 % (0.0-3.9); FHHb 15.5 % (0.0-5.0); FMetHb 0.3 % (0.0-1.5); FO2Hb 83.9 % (94-97); PATIENT TEMPERATURE 37.5; TOTAL HEMOGLOBIN 11.4 G/dl (14.0-17.9)
[2023-08-27] MEDS ORDERED: furosemide 20 MG/2 ML vial IV ONE (01:25)
[2023-08-27] MEDS ORDERED: furosemide inj 100 MG in normal saline 100ml IV soln 90 ML IV SCH (01:25)
[2023-08-27] MEDS: amiodarone/D5 360MG/200ML BAG 200 ML IV SCH ×4 (01:34→23:21)
[2023-08-27] MEDS: NORepinephrine 8mg/ 250ml NS 250 ML IV SCH (01:46)
[2023-08-27] MEDS: levalbuterol 0.63mg/3ml nebule IH SCH ×4 (01:55→21:25)
[2023-08-27] MEDS: methylPREDNISolone sod succ 125mg/2ml vial IV SCH ×3 (02:12→15:08)
[2023-08-27] MEDS: metoclopramide 5 mg/ml inj IV SCH ×2 (02:12→07:14)
[2023-08-27] MEDS: piperacillin/tazo 4.5gm/100ml 100 ML IV SCH ×3 (02:13→15:09)
[2023-08-27 02:56] LABS: BASOPHILS % (AUTO) 0.2 % (0-1); EOSINOPHILS % (AUTO) 0 % (0-6); HEMATOCRIT 31.7 % (42.0-52.0); HEMOGLOBIN 10.3 g/dl (14.0-17.9); LYMPHOCYTES # (AUTO) 1.4 X10'3 (1.1-4.8); LYMPHOCYTES % (AUTO) 5.9 % (21-51); MEAN CORPUSCULAR HEMOGLOBIN 29.2 PG (27.0-31.0); MEAN CORPUSCULAR HGB CONC 32.4 g/dL (33.0-36.5); MEAN CORPUSCULAR VOLUME 89.9 FL (78-98); MEAN PLATELET VOLUME 7.6 FL (7.4-10.4); MONOCYTES # (AUTO) 1.4 X10'3 (0-0.9); MONOCYTES % (AUTO) 5.9 % (2-12); NEUTROPHILS # (AUTO) 20.4 X10'3 (1.8-7.7); PLATELET COUNT 236 X10'3 (140-440); RED BLOOD COUNT 3.52 X10'6 (4.70-6.10); RED CELL DISTRIBUTION WIDTH 13.6 % (11.5-14.5); WHITE BLOOD COUNT 23.2 X10'3 (4.5-11.0)
[2023-08-27 03:11] LABS: ALBUMIN 2.8 G/DL (3.4-5.0); ANION GAP 10 (8-16); BLOOD UREA NITROGEN 16 MG/DL (7-18); BUN/CREATININE RATIO 16.2 (10.0-20.0); CHLORIDE 99 MMOL/L (99-107); CREATININE 0.99 MG/DL (0.60-1.10); DIGOXIN 1.2 NG/ML (0.9-1.9); GLUCOSE 172 MG/DL (70-104); MAGNESIUM 2.4 MG/DL (1.5-2.4); PHOSPHORUS 2.9 MG/DL (2.3-4.5); POTASSIUM 4.4 MMOL/L (3.5-5.1); PREALBUMIN 11.4 MG/DL (19-36); SODIUM 135 MMOL/L (135-145); TOTAL CARBON DIOXIDE 26.2 MMOL/L (24-32); eCRCL 94 ML/MIN; eGFR 78 ML/MIN
[2023-08-27] MEDS: furosemide inj 100 MG in normal saline 100ml IV soln 90 ML IV SCH ×3 (05:58→22:46)
[2023-08-27] MEDS: potassium Cl 20mEq/100mL bag 100 ML IV PRN (06:16)
[2023-08-27] MEDS: magnesium 2GM in 50ml NS 50 ML IV PRN (06:43)
[2023-08-27 06:59] LABS: ACT @ 1.70 U 254 SEC (193-297); ACT @ 2.84 U 310 SEC (260-420); BASELINE ACT 138 SEC (101-148)
[2023-08-27] MEDS ORDERED: metoprolol tartrate 1mg/ml inj IV ONE (07:00)
[2023-08-27] MEDS ORDERED: DEXTROSE 15 GM of carb/4 tabs (each vial/BOTTLE has 4 tablets) PO PRN ×4 (07:10→19:55)
[2023-08-27] MEDS ORDERED: glucagon, human recombinant 1mg kit SUBCUT PRN ×2 (07:10→19:55)
[2023-08-27] MEDS ORDERED: dextrose 50%-water 50ml dispensing syringe IV PRN ×3 (07:10→19:55)
[2023-08-27] MEDS: acetylcysteine 200 MG/ml 4ml vial INH SCH ×3 (07:12→21:25)
[2023-08-27] MEDS: lansoprazole 15mg solutab PO SCH (07:15)
[2023-08-27] MEDS: sennosides/docusate sodium tablet PO SCH ×2 (07:15→20:00)
[2023-08-27] MEDS: aspirin 81mg tab.chew PO SCH (07:23)
[2023-08-27] MEDS: insulin Lispro (HumaLOG) vial - multi-dose SQ SCH ×3 (07:26→20:27)
[2023-08-27] MEDS: morphine 4 MG/ML inj SYRINge IV PRN ×2 (07:32→15:08)
[2023-08-27] MEDS ORDERED: VANCOMYCIN 1,500MG inj. 1,500 MG in normal saline 500ml IV soln 300 ML IV SCH (08:00)
[2023-08-27] MEDS ORDERED: VANCOmycin 2,000MG in NS 500ml IV soln IV ONE (08:00)
[2023-08-27 08:11] LABS: ABG PH (VENOUS) 7.385 (7.310-7.450)
[2023-08-27 08:12] LABS: ABG BASE EXCESS VENOUS -1.2 mmol/L (-2.0 - 2.0); ABG HCO3 VENOUS 23.7 mmol/L (21.0-28.0); ABG PCO2 VENOUS 40.5 mmHg (41.0-54.0); FCOHb VENOUS 0.2 %; FHHb VENOUS 26.5 %; FMetHb VENOUS 0.3 % (0.0 - 0.5); TOTAL HEMOGLOBIN 13.8 G/dl (14.0-17.9)
[2023-08-27 08:13] LABS: ABG OXYGEN SATURATION VENOUS 73.4 % (75 - 99 %); CL (ABG) 99 mmol/L (99-107); GLUCOSE (ABG) 161 mg/dl (70-104); IONIZED CA (ABG) 1.11 mmol/L (1.10-1.30); K (ABG) 4.3 mmol/L (3.5-5.1)
[2023-08-27 08:16] LABS: ABG PCO2 31.3 mmHg (35.0-48.0); ABG PH 7.462 (7.340-7.440)
[2023-08-27 08:17] LABS: ABG HCO3 21.9 mmol/L (22.0-26.0); ABG OXYGEN SATURATION 99.1 % (94-97); CL (ABG) 100 mmol/L (99-107); FCOHb 0.3 % (0.0-3.9); FHHb 0.9 % (0.0-5.0); FMetHb 0.3 % (0.0-1.5); FO2Hb 98.5 % (94-97); GLUCOSE (ABG) 163 mg/dl (70-104); K (ABG) 4.3 mmol/L (3.5-5.1); TOTAL HEMOGLOBIN 13.6 G/dl (14.0-17.9)
[2023-08-27 08:20] LABS: ABG BASE EXCESS -0.7 mmol/L (-2.0-2.0); ABG HCO3 22.2 mmol/L (22.0-26.0); ABG OXYGEN SATURATION 99.1 % (94-97); ABG PCO2 31.6 mmHg (35.0-48.0); ABG PH 7.464 (7.340-7.440); FCOHb 0.2 % (0.0-3.9); FHHb 0.9 % (0.0-5.0); FMetHb 0.3 % (0.0-1.5); FO2Hb 98.6 % (94-97); TOTAL HEMOGLOBIN 13.7 G/dl (14.0-17.9)
[2023-08-27 08:21] LABS: CL (ABG) 101 mmol/L (99-107); GLUCOSE (ABG) 165 mg/dl (70-104); K (ABG) 4.3 mmol/L (3.5-5.1)
[2023-08-27 08:22] LABS: ABG PH 7.391 (7.340-7.440)
[2023-08-27 08:23] LABS: ABG BASE EXCESS -2.1 mmol/L (-2.0-2.0); ABG HCO3 22.5 mmol/L (22.0-26.0); ABG OXYGEN SATURATION 77.4 % (94-97); ABG PCO2 37.9 mmHg (35.0-48.0); CL (ABG) 100 mmol/L (99-107); FCOHb 0.3 % (0.0-3.9); FHHb 22.5 % (0.0-5.0); FMetHb 0.3 % (0.0-1.5); FO2Hb 76.9 % (94-97); GLUCOSE (ABG) 167 mg/dl (70-104); IONIZED CA (ABG) 1.09 mmol/L (1.10-1.30); K (ABG) 4.1 mmol/L (3.5-5.1); TOTAL HEMOGLOBIN 13.7 G/dl (14.0-17.9)
[2023-08-27 08:25] LABS: ABG BASE EXCESS -2.9 mmol/L (-2.0-2.0); ABG HCO3 20.8 mmol/L (22.0-26.0); ABG OXYGEN SATURATION 98.9 % (94-97); ABG PCO2 33.2 mmHg (35.0-48.0); ABG PH 7.415 (7.340-7.440); FCOHb 0.3 % (0.0-3.9); FHHb 1.1 % (0.0-5.0); FMetHb 0.3 % (0.0-1.5); FO2Hb 98.3 % (94-97); TOTAL HEMOGLOBIN 13.7 G/dl (14.0-17.9)
[2023-08-27 08:26] LABS: CL (ABG) 103 mmol/L (99-107); GLUCOSE (ABG) 178 mg/dl (70-104); IONIZED CA (ABG) 1.07 mmol/L (1.10-1.30); K (ABG) 3.9 mmol/L (3.5-5.1)
[2023-08-27 08:28] LABS: ABG BASE EXCESS -3.4 mmol/L (-2.0-2.0); ABG HCO3 20.7 mmol/L (22.0-26.0); ABG OXYGEN SATURATION 98.8 % (94-97); ABG PCO2 34.9 mmHg (35.0-48.0); ABG PH 7.392 (7.340-7.440); CL (ABG) 101 mmol/L (99-107); FCOHb 0.3 % (0.0-3.9); FHHb 1.2 % (0.0-5.0); FMetHb 0.3 % (0.0-1.5); FO2Hb 98.2 % (94-97); GLUCOSE (ABG) 176 mg/dl (70-104); TOTAL HEMOGLOBIN 13.9 G/dl (14.0-17.9)
[2023-08-27] MEDS: dexmedetomidin/NS 400mcg/100ml 100 ML IV SCH ×2 (09:05→22:45)
[2023-08-27 09:26] LABS: ALBUMIN 2.8 G/DL (3.4-5.0); ANION GAP 8 (8-16); BLOOD UREA NITROGEN 16 MG/DL (7-18); BUN/CREATININE RATIO 16.8 (10.0-20.0); CALCIUM 8.2 MG/DL (8.5-10.1); CHLORIDE 100 MMOL/L (99-107); CREATININE 0.95 MG/DL (0.60-1.10); GLUCOSE 194 MG/DL (70-104); MAGNESIUM 2.8 MG/DL (1.5-2.4); POTASSIUM 3.9 MMOL/L (3.5-5.1); SODIUM 136 MMOL/L (135-145); TOTAL CARBON DIOXIDE 27.6 MMOL/L (24-32); eCRCL 98 ML/MIN; eGFR 82 ML/MIN
[2023-08-27] MEDS: potassium Cl 40MEQ/270ML bag 270 ML IV PRN (10:14)
[2023-08-27] MEDS: morphine 2 MG/ML inj. syringe IV PRN ×2 (11:44→21:33)
[2023-08-27 16:17] LABS: ALBUMIN 2.9 G/DL (3.4-5.0); ANION GAP 8 (8-16); BLOOD UREA NITROGEN 18 MG/DL (7-18); BUN/CREATININE RATIO 18.2 (10.0-20.0); CALCIUM 8.3 MG/DL (8.5-10.1); CHLORIDE 99 MMOL/L (99-107); CREATININE 0.99 MG/DL (0.60-1.10); GLUCOSE 187 MG/DL (70-104); MAGNESIUM 2.4 MG/DL (1.5-2.4); POTASSIUM 3.8 MMOL/L (3.5-5.1); SODIUM 138 MMOL/L (135-145); TOTAL CARBON DIOXIDE 31.3 MMOL/L (24-32); eCRCL 94 ML/MIN; eGFR 78 ML/MIN
[2023-08-27] MEDS: vancomycin/NS 1 GM ADD-VANTAGE 250 ML IV SCH (16:34)
[2023-08-27] MEDS ORDERED: calcium gluconate inj. 1 GM in normal saline 100ml IV soln 100 ML IV ONE (17:15)
[2023-08-27] MEDS ORDERED: CALCIUM GLUC 1gm/50ml NACL,iso 100 ML IV ONE (17:22)
[2023-08-27] MEDS: metoprolol tartrate 1mg/ml inj IV SCH (17:27)
[2023-08-27] MEDS: enoxaparin 40mg/0.4ml syringe SUBCUT SCH (20:27)
[2023-08-27] MEDS: atorvastatin 10mg tablet PO SCH (21:00)
[2023-08-27 21:44] LABS: ALBUMIN 2.7 G/DL (3.4-5.0); ANION GAP 10 (8-16); BLOOD UREA NITROGEN 19 MG/DL (7-18); BUN/CREATININE RATIO 19.2 (10.0-20.0); CALCIUM 8.2 MG/DL (8.5-10.1); CHLORIDE 99 MMOL/L (99-107); CREATININE 0.99 MG/DL (0.60-1.10); GLUCOSE 189 MG/DL (70-104); MAGNESIUM 2.3 MG/DL (1.5-2.4); POTASSIUM 3.4 MMOL/L (3.5-5.1); SODIUM 139 MMOL/L (135-145); TOTAL CARBON DIOXIDE 29.8 MMOL/L (24-32); eCRCL 94 ML/MIN; eGFR 78 ML/MIN
[2023-08-28] VITALS (38 sets, daily range): BP systolic 107–148; BP diastolic 53–89; PULSE 64–120; RESP 15–35; O2SAT 89–98
[2023-08-28] MEDS: methylPREDNISolone sod succ 125mg/2ml vial IV SCH ×2 (00:33→08:13)
[2023-08-28] MEDS: piperacillin/tazo 4.5gm/100ml 100 ML IV SCH ×3 (00:33→17:24)
[2023-08-28] MEDS: metoprolol tartrate 1mg/ml inj IV SCH ×2 (00:34→08:13)
[2023-08-28] MEDS: insulin Lispro (HumaLOG) vial - multi-dose SQ SCH ×7 (00:37→23:56)
[2023-08-28] MEDS: vancomycin/NS 1 GM ADD-VANTAGE 250 ML IV SCH ×2 (01:00→08:12)
[2023-08-28 02:50] LABS: ALBUMIN 2.5 G/DL (3.4-5.0); ANION GAP 8 (8-16); BLOOD UREA NITROGEN 21 MG/DL (7-18); BUN/CREATININE RATIO 22.1 (10.0-20.0); CALCIUM 8.1 MG/DL (8.5-10.1); CHLORIDE 100 MMOL/L (99-107); CREATININE 0.95 MG/DL (0.60-1.10); GLUCOSE 178 MG/DL (70-104); MAGNESIUM 2.4 MG/DL (1.5-2.4); PHOSPHORUS 2.7 MG/DL (2.3-4.5); POTASSIUM 3.2 MMOL/L (3.5-5.1); SODIUM 139 MMOL/L (135-145); TOTAL CARBON DIOXIDE 30.9 MMOL/L (24-32); eCRCL 98 ML/MIN; eGFR 82 ML/MIN
[2023-08-28] MEDS: potassium Cl 20mEq/100mL bag 100 ML IV PRN ×2 (03:00→04:08)
[2023-08-28] MEDS: levalbuterol 0.63mg/3ml nebule IH SCH ×4 (03:21→20:22)
[2023-08-28] MEDS: sodium chloride 0.45% 1,000 ML IV SCH ×2 (04:48→18:53)
[2023-08-28] MEDS: amiodarone/D5 360MG/200ML BAG 200 ML IV SCH ×4 (05:15→23:15)
[2023-08-28 06:21] LABS: BASOPHILS % (AUTO) 0.1 % (0-1); EOSINOPHILS % (AUTO) 0 % (0-6); HEMATOCRIT 29.4 % (42.0-52.0); HEMOGLOBIN 9.9 g/dl (14.0-17.9); LYMPHOCYTES # (AUTO) 1.1 X10'3 (1.1-4.8); LYMPHOCYTES % (AUTO) 6.1 % (21-51); MEAN CORPUSCULAR HEMOGLOBIN 29.9 PG (27.0-31.0); MEAN CORPUSCULAR HGB CONC 33.7 g/dL (33.0-36.5); MEAN CORPUSCULAR VOLUME 88.5 FL (78-98); MONOCYTES % (AUTO) 5.3 % (2-12); NEUTROPHILS # (AUTO) 16.5 X10'3 (1.8-7.7); NEUTROPHILS % (AUTO) 88.5 % (42-75); PLATELET COUNT 321 X10'3 (140-440); RED BLOOD COUNT 3.32 X10'6 (4.70-6.10); RED CELL DISTRIBUTION WIDTH 13.3 % (11.5-14.5); WHITE BLOOD COUNT 18.7 X10'3 (4.5-11.0)
[2023-08-28 07:25] LABS: ABG BASE EXCESS 7.4 mmol/L (-2.0-2.0); ABG HCO3 30.8 mmol/L (22.0-26.0); ABG PCO2 (T) 38.7 mmHg (35.0-48.0); ABG PH (T) 7.518 (7.340-7.440); ABG PO2 (T) 72.9 mmHg (75.0-100.0); ALLEN'S TEST POSITIVE; FCOHb 0.3 % (0.0-3.9); FMetHb 0.3 % (0.0-1.5); FO2Hb 94.4 % (94-97); MODE MASK - BIPAP; TIDAL VOLUME 680 mL; TOTAL HEMOGLOBIN 11.4 G/dl (14.0-17.9)
[2023-08-28] MEDS: acetylcysteine 200 MG/ml 4ml vial INH SCH (07:31)
[2023-08-28] MEDS: lansoprazole 15mg solutab PO SCH (08:12)
[2023-08-28] MEDS: sennosides/docusate sodium tablet PO SCH ×2 (08:19→19:53)
[2023-08-28] MEDS: aspirin 81mg tab.chew PO SCH (08:19)
[2023-08-28] MEDS: potassium Cl 40MEQ/270ML bag 270 ML IV PRN ×3 (08:21→18:46)
[2023-08-28] MEDS ORDERED: VANCOMYCIN LEVEL IV ONE (08:30)
[2023-08-28] MEDS: HYDROcodone/acetaminophen 10/325mg tab PO PRN ×2 (10:31→20:15)
[2023-08-28] MEDS: furosemide inj 100 MG in normal saline 100ml IV soln 90 ML IV SCH (11:12)
[2023-08-28] MEDS: dexmedetomidin/NS 400mcg/100ml 100 ML IV SCH (15:01)
[2023-08-28] MEDS: VANCOmycin 1250MG/NS 250ml Bag 250 ML IV SCH ×2 (15:40→23:55)
[2023-08-28] MEDS: enoxaparin 100mg/ml syringe SUBCUT SCH (19:53)
[2023-08-28] MEDS: methylPREDNISolone sod succ/PF 40mg inj. IV SCH (19:53)
[2023-08-28] MEDS: atorvastatin 10mg tablet PO SCH (19:53)
[2023-08-28] MEDS: metoprolol tartrate 25mg tablet PO SCH (20:19)
[2023-08-28] MEDS: insulin glargine (Lantus) pen - multi-dose SQ SCH (20:21)
[2023-08-29] VITALS (33 sets, daily range): BP systolic 78–152; BP diastolic 55–96; PULSE 80–139; RESP 13–34; O2SAT 90–97
[2023-08-29] MEDS: amiodarone/D5 360MG/200ML BAG 200 ML IV SCH ×2 (00:50→06:25)
[2023-08-29] MEDS: morphine 2 MG/ML inj. syringe IV PRN (00:55)
[2023-08-29] MEDS: piperacillin/tazo 4.5gm/100ml 100 ML IV SCH ×3 (01:45→16:39)
[2023-08-29] MEDS: levalbuterol 0.63mg/3ml nebule IH SCH ×4 (03:41→20:54)
[2023-08-29] MEDS: furosemide inj 100 MG in normal saline 100ml IV soln 90 ML IV SCH ×2 (03:51→09:41)
[2023-08-29] MEDS: insulin Lispro (HumaLOG) vial - multi-dose SQ SCH ×3 (04:32→12:53)
[2023-08-29] MEDS: dexmedetomidin/NS 400mcg/100ml 100 ML IV SCH ×2 (05:03→06:25)
[2023-08-29 05:35] LABS: BASOPHILS % (AUTO) 0.1 % (0-1); EOSINOPHILS % (AUTO) 0 % (0-6); HEMOGLOBIN 10.1 g/dl (14.0-17.9); LYMPHOCYTES # (AUTO) 1.3 X10'3 (1.1-4.8); MEAN CORPUSCULAR HEMOGLOBIN 29.2 PG (27.0-31.0); MEAN CORPUSCULAR HGB CONC 32.6 g/dL (33.0-36.5); MEAN CORPUSCULAR VOLUME 89.6 FL (78-98); MEAN PLATELET VOLUME 7.6 FL (7.4-10.4); NEUTROPHILS # (AUTO) 14.2 X10'3 (1.8-7.7); NEUTROPHILS % (AUTO) 85.9 % (42-75); PLATELET COUNT 419 X10'3 (140-440); RED BLOOD COUNT 3.46 X10'6 (4.70-6.10); RED CELL DISTRIBUTION WIDTH 13.7 % (11.5-14.5); WHITE BLOOD COUNT 16.5 X10'3 (4.5-11.0)
[2023-08-29] MEDS: VANCOmycin 1250MG/NS 250ml Bag 250 ML IV SCH ×2 (07:23→15:08)
[2023-08-29] MEDS: methylPREDNISolone sod succ/PF 40mg inj. IV SCH (07:25)
[2023-08-29] MEDS: lansoprazole 15mg solutab PO SCH (07:28)
[2023-08-29] MEDS: sennosides/docusate sodium tablet PO SCH ×2 (07:29→20:35)
[2023-08-29] MEDS: enoxaparin 100mg/ml syringe SUBCUT SCH ×2 (07:29→20:33)
[2023-08-29] MEDS: metoprolol tartrate 25mg tablet PO SCH (07:29)
[2023-08-29 07:32] LABS: ALBUMIN 2.5 G/DL (3.4-5.0); ANION GAP 11 (8-16); BLOOD UREA NITROGEN 30 MG/DL (7-18); BUN/CREATININE RATIO 29.4 (10.0-20.0); CALCIUM 8.2 MG/DL (8.5-10.1); CHLORIDE 102 MMOL/L (99-107); CREATININE 1.02 MG/DL (0.60-1.10); GLUCOSE 143 MG/DL (70-104); MAGNESIUM 2.4 MG/DL (1.5-2.4); PHOSPHORUS 3.8 MG/DL (2.3-4.5); POTASSIUM 3.5 MMOL/L (3.5-5.1); SODIUM 141 MMOL/L (135-145); TOTAL CARBON DIOXIDE 27.9 MMOL/L (24-32); eCRCL 91 ML/MIN; eGFR 76 ML/MIN
[2023-08-29] MEDS: aspirin 81mg tab.chew PO SCH (09:41)
[2023-08-29] MEDS ORDERED: magnesium 4gm in 100ml NS 100 ML IV PRN (10:05)
[2023-08-29] MEDS ORDERED: potassium Cl 20 mEq SR tablet PO PRN (10:05)
[2023-08-29] MEDS ORDERED: potassium CL 10mEq/100ml bag 100 ML IV PRN (10:05)
[2023-08-29] MEDS ORDERED: potassium Cl 20mEq/100mL bag 100 ML IV PRN (10:05)
[2023-08-29] MEDS ORDERED: potassium Cl 40MEQ/270ML bag 250 ML IV PRN (10:05)
[2023-08-29] MEDS ORDERED: magnesium 2GM in 50ml NS 50 ML IV PRN (10:05)
[2023-08-29] MEDS ORDERED: potassium Cl 40MEQ/1/2NS 520ml 520 ML IV PRN (10:05)
[2023-08-29] MEDS: amiodarone 200mg tablet PO SCH ×2 (10:55→20:37)
[2023-08-29] MEDS ORDERED: glucagon, human recombinant 1mg kit SUBCUT PRN (11:45)
[2023-08-29] MEDS ORDERED: dextrose 50%-water 50ml dispensing syringe IV PRN ×2 (11:45)
[2023-08-29] MEDS ORDERED: DEXTROSE 15 GM of carb/4 tabs (each vial/BOTTLE has 4 tablets) PO PRN ×2 (11:45)
[2023-08-29] MEDS: HYDROcodone/acetaminophen 10/325mg tab PO PRN ×2 (15:16→20:34)
[2023-08-29] MEDS ORDERED: VANCOMYCIN LEVEL IV ONE ×2 (15:30→23:30)
[2023-08-29] MEDS: potassium Cl 20 mEq SR tablet PO PRN ×2 (17:36→20:07)
[2023-08-29] MEDS ORDERED: furosemide 40mg/4ml inj IV SCH (20:00)
[2023-08-29] MEDS ORDERED: methylPREDNISolone sod succ/PF 40mg inj. IV SCH (20:00)
[2023-08-29] MEDS: magnesium Cl slow-release 64mg tablet PO SCH (20:33)
[2023-08-29] MEDS: atorvastatin 10mg tablet PO SCH (20:35)
[2023-08-29] MEDS: metoprolol succinate 25mg (24-HOUR) SR. Tablet PO SCH (20:35)
[2023-08-29 20:53] LABS: ALBUMIN 2.6 G/DL (3.4-5.0); ANION GAP 10 (8-16); BLOOD UREA NITROGEN 28 MG/DL (7-18); BUN/CREATININE RATIO 30.1 (10.0-20.0); CALCIUM 8.5 MG/DL (8.5-10.1); CHLORIDE 103 MMOL/L (99-107); CREATININE 0.93 MG/DL (0.60-1.10); GLUCOSE 147 MG/DL (70-104); MAGNESIUM 2.5 MG/DL (1.5-2.4); PHOSPHORUS 3.1 MG/DL (2.3-4.5); POTASSIUM 3.3 MMOL/L (3.5-5.1); SODIUM 141 MMOL/L (135-145); TOTAL CARBON DIOXIDE 28.5 MMOL/L (24-32); eCRCL 100 ML/MIN; eGFR 84 ML/MIN
[2023-08-29] MEDS: insulin glargine (Lantus) pen - multi-dose SQ SCH (21:00)
[2023-08-29] MEDS ORDERED: insulin glargine (Lantus) pen - multi-dose SQ SCH (21:00)
[2023-08-30] VITALS (31 sets, daily range): BP systolic 124–172; BP diastolic 64–92; PULSE 68–105; RESP 7–35; O2SAT 88–96
[2023-08-30] MEDS: piperacillin/tazo 4.5gm/100ml 100 ML IV SCH ×4 (00:23→23:16)
[2023-08-30 01:52] LABS: BASOPHILS % (AUTO) 0.1 % (0-1); EOSINOPHILS % (AUTO) 0 % (0-6); HEMATOCRIT 36.4 % (42.0-52.0); LYMPHOCYTES # (AUTO) 1.6 X10'3 (1.1-4.8); LYMPHOCYTES % (AUTO) 9.8 % (21-51); MEAN CORPUSCULAR HEMOGLOBIN 29.4 PG (27.0-31.0); MEAN CORPUSCULAR HGB CONC 32.8 g/dL (33.0-36.5); MEAN CORPUSCULAR VOLUME 89.5 FL (78-98); MEAN PLATELET VOLUME 7.2 FL (7.4-10.4); MONOCYTES # (AUTO) 1.4 X10'3 (0-0.9); MONOCYTES % (AUTO) 8.4 % (2-12); NEUTROPHILS # (AUTO) 13.3 X10'3 (1.8-7.7); NEUTROPHILS % (AUTO) 81.7 % (42-75); PLATELET COUNT 494 X10'3 (140-440); RED BLOOD COUNT 4.07 X10'6 (4.70-6.10); RED CELL DISTRIBUTION WIDTH 13.8 % (11.5-14.5); WHITE BLOOD COUNT 16.3 X10'3 (4.5-11.0)
[2023-08-30 01:57] LABS: ALBUMIN 2.7 G/DL (3.4-5.0); ANION GAP 9 (8-16); BLOOD UREA NITROGEN 30 MG/DL (7-18); BUN/CREATININE RATIO 27.5 (10.0-20.0); CALCIUM 8.5 MG/DL (8.5-10.1); CHLORIDE 104 MMOL/L (99-107); CREATININE 1.09 MG/DL (0.60-1.10); GLUCOSE 157 MG/DL (70-104); MAGNESIUM 2.4 MG/DL (1.5-2.4); POTASSIUM 3.9 MMOL/L (3.5-5.1); SODIUM 141 MMOL/L (135-145); TOTAL CARBON DIOXIDE 28.4 MMOL/L (24-32); VANCOMYCIN,TROUGH 16.9 ug/mL (10.0-20.0); eCRCL 86 ML/MIN; eGFR 70 ML/MIN
[2023-08-30 02:57] LABS: TOTAL CELLS COUNTED 100
[2023-08-30 02:58] LABS: PLATELET ESTIMATE INCREASED
[2023-08-30] MEDS: potassium Cl 20 mEq SR tablet PO PRN ×2 (03:17→07:48)
[2023-08-30] MEDS: levalbuterol 0.63mg/3ml nebule IH SCH ×4 (03:21→21:15)
[2023-08-30] MEDS: sennosides/docusate sodium tablet PO SCH ×2 (07:43→20:20)
[2023-08-30] MEDS: amiodarone 200mg tablet PO SCH ×2 (07:43→20:19)
[2023-08-30] MEDS: aspirin 81mg tab.chew PO SCH (07:43)
[2023-08-30] MEDS: apixaban 5mg tablet PO SCH ×2 (07:44→20:20)
[2023-08-30] MEDS: lansoprazole 15mg solutab PO SCH (07:44)
[2023-08-30] MEDS: lisinopril 10 MG tablet PO SCH (07:45)
[2023-08-30] MEDS: metoprolol succinate 25mg (24-HOUR) SR. Tablet PO SCH ×2 (07:45→20:20)
[2023-08-30] MEDS: furosemide 40mg tablet PO SCH ×2 (07:46→20:20)
[2023-08-30] MEDS: magnesium Cl slow-release 64mg tablet PO SCH ×2 (07:49→20:19)
[2023-08-30] MEDS: VANCOmycin 1250MG/NS 250ml Bag 250 ML IV SCH ×4 (07:52→23:16)
[2023-08-30] MEDS ORDERED: furosemide 20MG tablet PO SCH (08:00)
[2023-08-30] MEDS: insulin Lispro (HumaLOG) vial - multi-dose SQ SCH (08:14)
[2023-08-30] MEDS: spironolactone 25 MG tablet PO SCH (09:06)
[2023-08-30] MEDS: lactose-reduced food (Ensure Enlive) - 237ml bottle PO SCH (18:00)
[2023-08-30] MEDS: HYDROcodone/acetaminophen 10/325mg tab PO PRN (20:18)
[2023-08-30] MEDS: insulin glargine (Lantus) pen - multi-dose SQ SCH (20:25)
[2023-08-30] MEDS ORDERED: atorvastatin 20mg tablet PO SCH (21:00)
[2023-08-31] VITALS (11 sets, daily range): BP systolic 127–160; BP diastolic 62–73; PULSE 51–78; RESP 14–24; O2SAT 91–95
[2023-08-31] MEDS: HYDROcodone/acetaminophen 10/325mg tab PO PRN ×2 (00:43→15:38)
[2023-08-31] MEDS: levalbuterol 0.63mg/3ml nebule IH SCH ×3 (02:52→15:00)
[2023-08-31 07:16] LABS: BASOPHILS % (AUTO) 0.2 % (0-1); EOSINOPHILS # (AUTO) 0.1 X10'3 (0-0.9); EOSINOPHILS % (AUTO) 0.6 % (0-6); HEMATOCRIT 33.8 % (42.0-52.0); HEMOGLOBIN 11.2 g/dl (14.0-17.9); LYMPHOCYTES # (AUTO) 2.8 X10'3 (1.1-4.8); MEAN CORPUSCULAR HEMOGLOBIN 29.6 PG (27.0-31.0); MEAN CORPUSCULAR VOLUME 89.8 FL (78-98); MEAN PLATELET VOLUME 7.1 FL (7.4-10.4); MONOCYTES # (AUTO) 1.4 X10'3 (0-0.9); MONOCYTES % (AUTO) 9.8 % (2-12); NEUTROPHILS # (AUTO) 10.2 X10'3 (1.8-7.7); NEUTROPHILS % (AUTO) 70.4 % (42-75); PLATELET COUNT 449 X10'3 (140-440); RED BLOOD COUNT 3.76 X10'6 (4.70-6.10); RED CELL DISTRIBUTION WIDTH 14.1 % (11.5-14.5); WHITE BLOOD COUNT 14.5 X10'3 (4.5-11.0)
[2023-08-31 07:34] LABS: ALBUMIN 2.4 G/DL (3.4-5.0); ANION GAP 8 (8-16); BLOOD UREA NITROGEN 27 MG/DL (7-18); BUN/CREATININE RATIO 27.8 (10.0-20.0); CALCIUM 8.1 MG/DL (8.5-10.1); CHLORIDE 105 MMOL/L (99-107); CREATININE 0.97 MG/DL (0.60-1.10); GLUCOSE 102 MG/DL (70-104); MAGNESIUM 2.5 MG/DL (1.5-2.4); POTASSIUM 3.9 MMOL/L (3.5-5.1); SODIUM 141 MMOL/L (135-145); TOTAL CARBON DIOXIDE 28.2 MMOL/L (24-32); eCRCL 96 ML/MIN; eGFR 80 ML/MIN
[2023-08-31] MEDS: lactose-reduced food (Ensure Enlive) - 237ml bottle PO SCH ×2 (08:00→13:10)
[2023-08-31] MEDS: apixaban 5mg tablet PO SCH (08:21)
[2023-08-31] MEDS: amiodarone 200mg tablet PO SCH (08:21)
[2023-08-31] MEDS: sennosides/docusate sodium tablet PO SCH (08:21)
[2023-08-31] MEDS: lansoprazole 15mg solutab PO SCH (08:21)
[2023-08-31] MEDS: magnesium Cl slow-release 64mg tablet PO SCH (08:21)
[2023-08-31] MEDS: aspirin 81mg tab.chew PO SCH (08:21)
[2023-08-31] MEDS: furosemide 40mg tablet PO SCH (08:21)
[2023-08-31] MEDS: metoprolol succinate 25mg (24-HOUR) SR. Tablet PO SCH (08:21)
[2023-08-31] MEDS: lisinopril 10 MG tablet PO SCH (08:22)
[2023-08-31] MEDS: piperacillin/tazo 4.5gm/100ml 100 ML IV SCH (08:22)
[2023-08-31] MEDS: VANCOmycin 1250MG/NS 250ml Bag 250 ML IV SCH (08:23)
[2023-08-31 09:08] LABS: PLATELET ESTIMATE INCREASED; POLYCHROMASIA 1+; TOTAL CELLS COUNTED 100
[2023-08-31] MEDS: spironolactone 25 MG tablet PO SCH (09:30)
[2023-08-31] MEDS ORDERED: ATOR20TA66 PO (10:09)
[2023-08-31] MEDS ORDERED: LISI10TA27 PO ×2 (10:09)
[2023-08-31] MEDS ORDERED: AMI200T PO (10:09)
[2023-08-31] MEDS ORDERED: METO-395 PO (10:09)
[2023-08-31] MEDS ORDERED: FURO-150 PO (10:09)
[2023-08-31] MEDS ORDERED: ASPI81TA53 PO (10:09)
[2023-08-31] MEDS ORDERED: APIX5TAB3 PO (10:09)
[2023-08-31] MEDS ORDERED: HYDR-3972 PO (10:09)
[2023-08-31] MEDS ORDERED: SPIR25TA PO (10:09)
[2023-08-31] MEDS ORDERED: METF-900 PO (10:14)
[2023-08-31] MEDS ORDERED: LISI20TA28 PO (10:23)
== END 2023-08-31 17:25 | disposition home health service (06) | DRG 166 ==
LOC: SSTAY O 12:41 → PCU 3S 17:47 → CICU 2S 08-24 11:32
PROVIDERS: ADMIT Thoracic Surgery (Cardiothoracic Vascular Surgery); ATTEND Thoracic Surgery (Cardiothoracic Vascular Surgery)
PROC: B2111ZZ Fluoroscopy of Multiple Coronary Arteries using Low Osmolar Contrast (ICD-10-PCS; 2023-08-22)
PROC: B2151ZZ Fluoroscopy of Left Heart using Low Osmolar Contrast (ICD-10-PCS; 2023-08-22)
PROC: B2181ZZ Fluoroscopy of Left Internal Mammary Bypass Graft using Low Osmolar Contrast (ICD-10-PCS; 2023-08-22)
PROC: B2171ZZ Fluoroscopy of Right Internal Mammary Bypass Graft using Low Osmolar Contrast (ICD-10-PCS; 2023-08-22)
PROC: 4A023N7 Measurement of Cardiac Sampling and Pressure, Left Heart, Percutaneous Approach (ICD-10-PCS; 2023-08-22)
PROC: B41D1ZZ Fluoroscopy of Aorta and Bilateral Lower Extremity Arteries using Low Osmolar Contrast (ICD-10-PCS; 2023-08-22)
PROC: 06BP4ZZ Excision of Right Saphenous Vein, Percutaneous Endoscopic Approach (ICD-10-PCS; 2023-08-24)
PROC: 02100Z9 Bypass Coronary Artery, One Artery from Left Internal Mammary, Open Approach (ICD-10-PCS; 2023-08-24)
PROC: 02100Z8 Bypass Coronary Artery, One Artery from Right Internal Mammary, Open Approach (ICD-10-PCS; 2023-08-24)
PROC: 5A1221Z Performance of Cardiac Output, Continuous (ICD-10-PCS; 2023-08-24)
PROC: B24BZZ4 Ultrasonography of Heart with Aorta, Transesophageal (ICD-10-PCS; 2023-08-24)
PROC: 021309W Bypass Coronary Artery, Four or More Arteries from Aorta with Autologous Venous Tissue, Open Approach (ICD-10-PCS; principal; 2023-08-24 08:20)
PROC: 5A0935A Assistance with Respiratory Ventilation, Less than 24 Consecutive Hours, High Flow/Velocity Cannula (ICD-10-PCS; 2023-08-26)
PROC: 5A09357 Assistance with Respiratory Ventilation, Less than 24 Consecutive Hours, Continuous Positive Airway Pressure (ICD-10-PCS; 2023-08-27)
PROC: 5A0935A Assistance with Respiratory Ventilation, Less than 24 Consecutive Hours, High Flow/Velocity Cannula (ICD-10-PCS; 2023-08-28)
PROC: 5A09357 Assistance with Respiratory Ventilation, Less than 24 Consecutive Hours, Continuous Positive Airway Pressure (ICD-10-PCS; 2023-08-28)
PROC: 5A0935A Assistance with Respiratory Ventilation, Less than 24 Consecutive Hours, High Flow/Velocity Cannula (ICD-10-PCS; 2023-08-29)
DX: I25.110 Atherosclerotic heart disease of native coronary artery with unstable angina pectoris (principal); J18.9 Pneumonia, unspecified organism; I25.82 Chronic total occlusion of coronary artery; E66.01 Morbid (severe) obesity due to excess calories; I48.0 Paroxysmal atrial fibrillation; D62 Acute posthemorrhagic anemia; J95.89 Other postprocedural complications and disorders of respiratory system, not elsewhere classified; E11.9 Type 2 diabetes mellitus without complications; I10 Essential (primary) hypertension; Y95 Nosocomial condition; E78.5 Hyperlipidemia, unspecified; R09.02 Hypoxemia; Z20.822 Contact with and (suspected) exposure to COVID-19; Z82.49 Family history of ischemic heart disease and other diseases of the circulatory system; Z88.1 Allergy status to other antibiotic agents; Z68.38 Body mass index [BMI] 38.0-38.9, adult; I25.2 Old myocardial infarction; Z79.01 Long term (current) use of anticoagulants
CPT/HCPCS: 0232T; 36415; 36600; 71045; 71046; 74018; 80048; 80053; 80162; 80202; 81001; 82330; 82435; 82800; 82803; 82947; 82948; 83036; 83605; 83735; 84100; 84132; 84134; 84295; 84478; 84484; 85007; 85018; 85025; 85347; 85384; 85610; 85730; 86885; 86900; 86901; 86920; 87040; 87070; 87081; 87502; 87503; 87634; 87811; 92508; 92616; 93005; 93306; 93312; 93325; 93458; 93567; 93880; 93970; 94002; 94003; 94010; 94640; 94660; 94664; 94760; 96360; 97110; 97116; 97161; 97530; 99152; 99153; A4615; A4618; A4620; A5200; A6213; A6258; A6402; A6446; A6449; A7000; A7015; C1751; C9290; G0378; J0131; J0171; J0282; J0610; J0690; J1100; J1160; J1265; J1644; J1650; J1815; J1940; J2250; J2270; J2405; J2440; J2543; J2704; J2765; J2795; J2920; J2930; J3010; J3370; J3475; J3480; J3490; J7030; J7040; J7050; J7060; J7120; J7614; P9016; P9045; P9047; Q0163; Q9967; S0020